=== PATIENT | male | born 1985 | race Caucasian/White ===

== ENCOUNTER 2020-01-16 17:40 | Inpatient (IN) | payer MEDICAID, OTHER ==
[~2020-01-16] VITALS: Ht 167.6 cm; Wt 65.1 kg
[2020-01-16] MEDS ORDERED: LORazepam 1 MG TABLET PO ONE (19:45)
[2020-01-16 19:57] LABS: BASOPHILS % (AUTO) 0.8 % (0.0-2.0); EOSINOPHILS % (AUTO) 0 % (1.0-6.0); HEMATOCRIT 39.2 % (41-53); HEMOGLOBIN 13.6 g/dL (13.5-17.5); LYMPHOCYTES # (AUTO) 0.8 K/uL (1.0-4.8); LYMPHOCYTES % (AUTO) 11.9 % (22.0-44.0); MEAN CORPUSCULAR HEMOGLOBIN 31.4 pg (26.0-34.0); MEAN CORPUSCULAR HGB CONC 34.6 G/dL (31.0-37.0); MEAN CORPUSCULAR VOLUME 91 fL (80-100); MONOCYTES # (AUTO) 0.7 K/uL (0.1-1.0); MONOCYTES % (AUTO) 10.6 % (2.0-9.0); NEUTROPHILS # (AUTO) 5.2 K/uL (1.8-7.7); NEUTROPHILS % (AUTO) 76.7 % (40.0-70.0); PLATELET COUNT (AUTO) 228 K/uL (150-450); RED BLOOD CELL COUNT(AUTO) 4.32 MIL/uL (4.50-5.90)
[2020-01-16 19:58] LABS: COVID AG,FIA SOURCE NASOPHARYNGEAL
[2020-01-16 20:06] LABS: ANION GAP 9 mmol/L (8-16); CARBON DIOXIDE 28 mmol/L (22-29); CHLORIDE 102 mmol/L (98-107); CREATININE 1.07 mg/dL (0.60-1.30); GLOMERULAR FILTR. RATE CALC > 60 mL/min (>60); GLUCOSE,RANDOM 122 mg/dL (70-110); POTASSIUM 3.7 mmol/L (3.5-5.1); SODIUM SERUM 139 mmol/L (136-145); UREA NITROGEN, BLOOD 15 mg/dL (7-18)
[2020-01-16 20:14] LABS: ALANINE AMINOTRANSFERASE 86 U/L (12-78); ALBUMIN 4.5 g/dL (3.4-5.0); ALKALINE PHOSPHATASE 110 U/L (46-116); ASPARTATE AMINOTRANSFERASE 204 U/L (15-37); BILIRUBIN,TOTAL 0.5 mg/dL (0.1-1.0); TOTAL PROTEIN, SERUM 9.1 g/dL (6.4-8.2)
[2020-01-16] MEDS ORDERED: ACETAMINOPHEN 325 MG TABLET PO PRN (20:45)
[2020-01-16] MEDS ORDERED: ONDANSETRON HCL 4 MG/2 ML VIAL IVP PRN (20:45)
[2020-01-16] MEDS ORDERED: LORazepam 2 MG/ML VIAL IVP PRN (21:15)
[2020-01-16] MEDS ORDERED: MAGNESIUM OXIDE 400 MG TABLET PO PRN (21:15)
[2020-01-16] MEDS ORDERED: MAGNESIUM SULFATE 4 GM/WATER 100 ML IV PRN (21:15)
[2020-01-16] MEDS ORDERED: POTASSIUM CHL 10 MEQ/WATER 50 ML IV PRN (21:15)
[2020-01-16] MEDS ORDERED: MAGNESIUM SULFATE 2 GM/WATER 50 ML IV PRN (21:15)
[2020-01-16] MEDS ORDERED: POTASSIUM CHLORIDE 20 MEQ ER TABLET PO PRN (21:15)
[2020-01-16] MEDS ORDERED: MAGNESIUM SULFATE 2 GM, MVI, ADULT NO.1 WITH VIT K 10 ML, THIAMINE 100 MG, FOLIC ACID 1... IV ONE ×5 (21:45)
[2020-01-16 22:40] VITALS: BP 131/77
[2020-01-16 23:55] VITALS: BP 138/90
[2020-01-17] MEDS ORDERED: INFLUENZA VIRUS VACCINE QVS 2020-21 (6MO+)/PF 60 MCG/0.5 ML SYRINGE IM ONE (00:30)
[2020-01-17 00:55] VITALS: BP 131/87
[2020-01-17] MEDS: LORazepam 2 MG TABLET PO PRN ×2 (01:03→03:12)
[2020-01-17 01:55] VITALS: BP 141/99
[2020-01-17] MEDS ORDERED: DiphenhydrAMINE HCL 50 MG/ML VIAL IVP ONE (04:00)
[2020-01-17] MEDS ORDERED: HALOPERIDOL LACTATE 5 MG/ML VIAL IM ONE (04:00)
[2020-01-17] MEDS ORDERED: LORazepam 2 MG/ML VIAL IVP ONE (04:00)
[2020-01-17 04:08] VITALS: BP 144/82
[2020-01-17] MEDS ORDERED: LORazepam 2 MG TABLET PO PRN (07:00)
[2020-01-17 07:46] LABS: ALBUMIN 4.1 g/dL (3.4-5.0); MAGNESIUM 2.5 mg/dL (1.80-2.40)
[2020-01-17 08:34] VITALS: BP 134/92
[2020-01-17] MEDS: LORazepam 2 MG TABLET PO SCH ×4 (09:00→20:57)
[2020-01-17 19:26] LABS: AMPHET/METH SCREEN,URINE NEGATIVE (NEGATIVE); BARBITURATE SCREEN, URINE NEGATIVE (NEGATIVE); BENZODIAZEPINES SCREEN,URINE NEGATIVE (NEGATIVE); CANNABINOID SCREEN,URINE NEGATIVE (NEGATIVE); COCAINE SCREEN,URINE NEGATIVE (NEGATIVE); METHADONE SCREEN, URINE NEGATIVE (NEGATIVE); OPIATE SCREEN,URINE NEGATIVE (NEGATIVE)
[2020-01-17 19:29] LABS: PHENCYCLIDINE SCREEN,URINE NEGATIVE (NEGATIVE)
[2020-01-17 19:59] VITALS: BP 121/73
[2020-01-18 04:43] VITALS: BP 121/69
[2020-01-18 06:43] LABS: ALANINE AMINOTRANSFERASE 128 U/L (12-78); ALBUMIN 3.8 g/dL (3.4-5.0); ALKALINE PHOSPHATASE 89 U/L (46-116); ANION GAP 10 mmol/L (8-16); ASPARTATE AMINOTRANSFERASE 203 U/L (15-37); BILIRUBIN,TOTAL 0.8 mg/dL (0.1-1.0); CALCIUM, TOTAL 8.8 mg/dL (8.8-10.5); CARBON DIOXIDE 26 mmol/L (22-29); CHLORIDE 101 mmol/L (98-107); CREATININE 0.89 mg/dL (0.60-1.30); GLOMERULAR FILTR. RATE CALC > 60 mL/min (>60); GLUCOSE,RANDOM 104 mg/dL (70-110); POTASSIUM 3.4 mmol/L (3.5-5.1); SODIUM SERUM 137 mmol/L (136-145); UREA NITROGEN, BLOOD 14 mg/dL (7-18)
[2020-01-18] MEDS: MULTIVITAMINS WITH MINERALS, THERAPEUTIC TABLET PO SCH (08:59)
[2020-01-18] MEDS: LORazepam 2 MG TABLET PO SCH ×4 (08:59→22:08)
[2020-01-18 20:07] VITALS: BP 128/67
[2020-01-19 04:30] VITALS: BP 134/92
[2020-01-19] MEDS ORDERED: LORazepam 1 MG TABLET PO PRN (07:00)
[2020-01-19 07:46] VITALS: BP 116/74
[2020-01-19] MEDS: MULTIVITAMINS WITH MINERALS, THERAPEUTIC TABLET PO SCH (08:37)
[2020-01-19] MEDS ORDERED: LORazepam 1 MG TABLET PO SCH (09:00)
[2020-01-19 20:34] VITALS: BP 138/88
[2020-01-20 04:01] VITALS: BP 138/93
[2020-01-20] MEDS ORDERED: LORazepam 1 MG TABLET PO PRN (07:00)
[2020-01-20 08:14] VITALS: BP 131/77
[2020-01-20] MEDS: MULTIVITAMINS WITH MINERALS, THERAPEUTIC TABLET PO SCH (08:17)
[2020-01-20] MEDS: OLANZapine 5 MG TABLET PO SCH (10:30)
[2020-01-20 18:59] VITALS: BP 108/60
[2020-01-21 05:06] VITALS: BP 110/73
[2020-01-21 08:06] VITALS: BP 110/64
[2020-01-21] MEDS: MULTIVITAMINS WITH MINERALS, THERAPEUTIC TABLET PO SCH (08:19)
[2020-01-21] MEDS: OLANZapine 5 MG TABLET PO SCH (08:19)
[2020-01-21 20:10] VITALS: BP 117/70
[2020-01-22 07:20] VITALS: BP 118/71
[2020-01-22] MEDS: OLANZapine 5 MG TABLET PO SCH (08:09)
[2020-01-22] MEDS: MULTIVITAMINS WITH MINERALS, THERAPEUTIC TABLET PO SCH (08:09)
[2020-01-22 20:32] VITALS: BP 139/78
[2020-01-23 04:34] LABS: COVID AG,FIA SOURCE NASOPHARYNGEAL
[2020-01-23 05:02] VITALS: BP 125/68
[2020-01-23] MEDS: MULTIVITAMINS WITH MINERALS, THERAPEUTIC TABLET PO SCH (08:00)
[2020-01-23] MEDS: OLANZapine 5 MG TABLET PO SCH (08:00)
[2020-01-23 08:18] VITALS: BP 126/80
[2020-01-23 19:40] VITALS: BP 118/76
[2020-01-24 05:00] VITALS: BP 118/72
[2020-01-24] MEDS: OLANZapine 5 MG TABLET PO SCH ×2 (08:17→09:00)
[2020-01-24] MEDS: MULTIVITAMINS WITH MINERALS, THERAPEUTIC TABLET PO SCH ×2 (08:17→09:00)
[2020-01-24 09:37] VITALS: BP 143/84
[2020-01-24 20:11] VITALS: BP 140/95
[2020-01-25] MEDS: MULTIVITAMINS WITH MINERALS, THERAPEUTIC TABLET PO SCH (08:04)
[2020-01-25] MEDS: OLANZapine 5 MG TABLET PO SCH (08:04)
[2020-01-25 08:34] VITALS: BP 119/69
[2020-01-25 18:12] VITALS: BP 136/70
[2020-01-25 20:33] VITALS: BP 115/66
[2020-01-26 05:40] VITALS: BP 148/89
[2020-01-26 07:32] VITALS: BP 124/60
[2020-01-26] MEDS: MULTIVITAMINS WITH MINERALS, THERAPEUTIC TABLET PO SCH (08:50)
[2020-01-26] MEDS: OLANZapine 5 MG TABLET PO SCH (08:50)
[2020-01-26 16:00] VITALS: BP 108/61
[2020-01-26 22:01] VITALS: BP 120/73
[2020-01-27 08:30] VITALS: BP 122/75
[2020-01-27] MEDS: MULTIVITAMINS WITH MINERALS, THERAPEUTIC TABLET PO SCH (09:00)
[2020-01-27] MEDS: OLANZapine 5 MG TABLET PO SCH (09:00)
[2020-01-27] MEDS ORDERED: OLAN5TAB2 PO (13:28)
== END 2020-01-27 15:41 | DRG 897 ==
LOC: EMS 17:42 → 6S 20:30
PROVIDERS: ADMIT Internal Medicine; ATTEND Internal Medicine
DX: F10.231 Alcohol dependence with withdrawal delirium (principal); F41.9 Anxiety disorder, unspecified; F22 Delusional disorders; F31.9 Bipolar disorder, unspecified; Z20.828 Contact with and (suspected) exposure to other viral communicable diseases
CPT/HCPCS: 80307; 83735; 84132; 87426; G0480; J1200; J1630; J2060; J3411; J3475; J3490; J7030